=== PATIENT | female | born 1985 | race Caucasian/White ===

== ENCOUNTER 2017-01-20 13:23 | Emergency (ER) | payer OTHER ==
[~2017-01-20] VITALS: Ht 157.5 cm; Wt 81.8 kg
[~2017-01-20 13:23] MED LIST: DOCU-41 PO; FERR-83 PO; IBUP800T28 PO; ONDA-53 PO; OXYC-284 PO
[2017-01-20 13:25] VITALS: BP 145/93; PULSE 103; RESP 18; O2SAT 97
[2017-01-20 16:06] VITALS: BP 120/84; PULSE 68; RESP 16; O2SAT 100
--- NOTE | 2017-01-20 18:44 | ED.REPORT ---
HPI-Back Pain Under 40 Date of Service Jan 20, 2017 ED Provider: Jim Soares PA-C Otherwise healthy 31-year-old female presents with chief complaint of back pain. Patient reports back pain that began suddenly last night as she bent over reaching into the crib to lift her child. Complains of pain along the right side and flank. Pain is aggravated with deep inspiration. Denies numbness , tingling, weakness or pain in lower extremity. Denies fever, DM, HIV, organ transplant, immunosuppression, recent surgery, recent infection, history of back surgery, surgical implants and IV drug use. Denies urinary symptoms such as dysuria, hematuria. Denies history of AAA. Denies bowel/bladder dysfunction and saddle anesthesia. Nursing Notes Stated Complaint: DIFFICULTY BREATHING/BACK PAIN Chief Complaint: Back Pain or Injury Nursing Notes Reviewed: Yes Allergies: Coded Allergies: diphenhydramine (Verified Allergy, Severe, Itching, 01/20/17) Scheduled Ferrous Sulfate (Ferrous Sulfate) 325 Mg Tablet 325 MG PO DAILY Scheduled PRN Cyclobenzaprine (Cyclobenzaprine) 5 Mg Tablet 5-10 MG PO TID PRN PRN Spasm Docusate Sodium (Colace) 100 Mg Capsule 100 MG PO BID PRN PRN For Constipation Ibuprofen (Ibuprofen) 800 Mg Tablet 800 MG PO Q6H PRN PRN For Pain Naproxen (Naproxen) 500 Mg Tab 500 MG PO BID PRN PRN For Pain Ondansetron (Ondansetron) 4 Mg Tablet 4 MG PO Q6H PRN PRN For Nausea Oxycodone HCl/Acetaminophen 5-325 (Percocet 5-325) 1 Each Tablet 1-2 TABLET PO Q4H PRN PRN For Pain General Time Seen by MD: 18:18 Chief Complaint Back pain Sudden in Onset?: Yes Past Medical History Past Medical History Denies Smoking History Never Smoker Review of Systems Review of Systems Note: Negative unless stated otherwise in history of present illness Physical Exam General: Well appearing, well developed, well nourished, no acute distress. Back: Normal to inspection, negative CVA tenderness. Mild to moderate left paraspinal tenderness and SI tenderness. Head: Atraumatic, normocephalic. Eyes: No scleral icterus or injection. No discharge. Vision grossly intact. ENT: Voice clear, hearing grossly intact. Respiratory: Regular rate and rhythm. Breath sounds present, clear to auscultation and equal bilaterally. No respiratory distress. No increased work of breathing, speaks in complete sentences. Cardiovascular: Regular rate and rhythm, without murmur, gallop or rub. No pedal edema. Gastrointestinal: Abdomen flat and non-tender without guarding or rebound. Bowel sounds normoactive. Skin: Warm and dry. Neurological: Normal gait, toe walk, heel walk, Romberg. Patellar and Achilles reflexes present and equal B/L. Sensation to light touch intact at medial leg, dorsal foot and lateral foot B/L. negative seated straight leg raise, negative seated cross straight leg raise. Psychological: Alert and oriented. Speech appropriate, linear and logical. Behavior appropriate. Initial Vital Signs Vital Signs (First) Date Time Temp Pulse Resp B/P Pulse Ox O2 Delivery O2 Flow Rate FiO2 01/20/17 13:25 36.9 103 18 145/93 97 Room Air Mild tachycardia, elevated blood pressure. Re-Eval/Medical Decision Med Decision/Clinical Course Back pain is without red flag signs or symptoms for acute disc herniation, cauda equina, infection, hematoma, trauma, pyelonephritis, nephrolithiasis, AAA , cancer. I believe this is musculoskeletal back pain. Stable and safe to be discharged. Advised [id number] analgesic, provide a small amount cyclobenzaprine with precautions. Advised regarding primary care follow-up, provided emergency return precautions. Patient verbalized understanding of, and consent to, the plan. Mild tachycardia and elevated blood pressure in triage is noted and not thought pertinent. Discharge & Departure Impression: Primary Impression: Low back pain Chronicity: acute Back pain laterality: right Sciatica presence: without sciatica Qualified Code: M54.5 - Low back pain Disposition: Home All VS Reviewed: Yes Condition: Stable Patient Instructions: Acute Low Back Pain (ED) Additional Instructions: Evaluation in the emergency department for lower back pain includes interview and physical examination, both of which are reassuring that this is not likely to represent and immediately dangerous condition. History does not suggest that this is likely to be a spinal fracture, infection or bleeding in your spine. Your neurological examination is normal, indicating there is no damage to the nerves in your back. I see no indication to perform imaging tests at this time. Treatment is largely symptomatic. Rest is important, especially for the next couple of days, but avoid total bed rest. Reasonable activity as tolerated is the best. Apply ice to the affected area 4 times a day for 20 minutes over the next 24 hours. After that you will probably find warm compresses most helpful. The pain is best treated with 500 mg naproxen every 12 hours (I will write a prescription for this), or 1000 mg of acetaminophen (Tylenol) every 6 hours. These drugs can be taken at the same time for more severe pain. I will also write prescription for a small amount of cyclobenzaprine, muscle relaxant. Do not drive or drink alcohol in 4 hours of taking this medication. Most of all be patient: 70-90% of people with injuries presenting like yours will resolve within 7 weeks, even without treatment. Follow-up with your primary care provider in the next week or two to be sure your recovery is progressing as expected. Return the emergency department for new or worsening symptoms such as loss of bowel/bladder control, numbness between your legs, new weakness/numbness or high fever. Referrals: [facility] EDSupervising Provider for APC: Bennett Patel MD copies to: [facility] Jim Soares PA-C Jan 20, 2017 18:44
[2017-01-20] MEDS ORDERED: NPR500T PO (18:45)
[2017-01-20] MEDS ORDERED: CYCL5TAB PO (18:45)
[2017-01-20 19:58] VITALS: BP 142/98; PULSE 74; RESP 18
== END 2017-01-20 19:15 | disposition home or self-care (01) ==
LOC: SED 13:23
DX: M54.5 Low back pain (principal); X50.1XXA Overexertion from prolonged static or awkward postures, initial encounter; Y93.89 Activity, other specified; Y92.013 Bedroom of single-family (private) house as the place of occurrence of the external cause; Y99.8 Other external cause status; Z88.8 Allergy status to other drugs, medicaments and biological substances
CPT/HCPCS: 96372; 99283; J1885